=== PATIENT | female | born 1975 ===

== ENCOUNTER 2020-05-02 05:58 | Day surgery (SDC) | payer OTHER ==
[~2020-05-02 05:58] MED LIST: ZYRTEC10 M3 PO
== END 2020-05-02 17:30 | disposition home or self-care (01) ==
LOC: CIR.AMB 05:58 → ADM 12:30 → CIR.AMB 12:30
PROVIDERS: ATTEND Obstetrics & Gynecology
DX: N84.0 Polyp of corpus uteri (principal); N73.6 Female pelvic peritoneal adhesions (postinfective); N70.11 Chronic salpingitis; Z20.828 Contact with and (suspected) exposure to other viral communicable diseases